=== PATIENT | female | born 1945 | race Caucasian/White ===

== ENCOUNTER 2024-01-15 12:07 | Inpatient (IN) | payer OTHER ==
[~2024-01-15] VITALS: Ht 149.9 cm; Wt 68.5 kg
[2024-01-15 12:07] VITALS: BP_SYST 108; PULSE 78; RESP 17; TEMP 97.2; O2SAT 92
[~2024-01-15 12:07] MED LIST: AMLO-500 PO; AMLO1CAP5; DICY20TA55 PO; FLUO40CA49 PO; GLIP10TA21; GLIP2.5T3 PO; LABE100T25; LEVO125C4 PO; LEVO250T73 PO; LEVO88CA4; LIP20 PO; LIP40; NITR-85 PO; [UNRECOGNIZED DRUG - CODE] PO
[2024-01-15 12:45] LABS: BASOPHILS # (AUTO) 0.1 K/uL (0.0-0.2); BASOPHILS % (AUTO) 0.5 % (0.0-2.0); EOSINOPHILS # (AUTO) 0.1 K/uL (0.0-0.4); EOSINOPHILS % (AUTO) 0.2 % (0.0-4.0); HEMATOCRIT 29.5 % (36-48); HEMOGLOBIN 9.7 g/dL (12.0-16.0); LYMPHOCYTES # (AUTO) 1.5 K/uL (1.0-5.5); LYMPHOCYTES % (AUTO) 7.5 % (20.5-51.5); MEAN CORPUSCULAR HEMOGLOBIN 30 pg (27-31); MEAN CORPUSCULAR HGB CONC 33 % (32-36); MEAN CORPUSCULAR VOLUME 92 fL (79.0-98.0); MONOCYTES # (AUTO) 1.2 K/uL (0.0-1.0); MONOCYTES % (AUTO) 5.7 % (1.7-9.3); NEUTROPHILS # (AUTO) 17.4 K/uL (1.8-7.7); NEUTROPHILS % (AUTO) 86.1 % (40.0-70.0); PLATELET COUNT (AUTO) 432 K/uL (130-430); RED BLOOD CELL COUNT(AUTO) 3.22 MIL/uL (4.2-6.2); RED CELL DISTRIBUTION WIDTH 14.3 % (9.0-15.0); WHITE BLOOD COUNT (AUTO) 20.2 K/uL (4.8-10.8)
[2024-01-15 13:04] LABS: INR 1.1 (0.8-1.2); PROTHROMBIN TIME 11.4 SECS (9.5-12.5)
[2024-01-15 13:14] LABS: ALANINE AMINOTRANSFERASE 8 U/L (12-78); ALBUMIN 2.4 g/dL (3.4-4.8); ANION GAP 10 (5-15); ASPARTATE AMINOTRANSFERASE 16 U/L (10-37); BILIRUBIN,DIRECT 0.1 mg/dL (0.0-0.3); CALCIUM 10.1 mg/dL (8.4-11.0); CARBON DIOXIDE 28 mmol/L (23-29); CHLORIDE 99 mmol/L (98-107); CREATINE KINASE, TOTAL 30 U/L (26-192); CREATININE 0.95 mg/dL (0.55-1.30); FREE T4 (FREE THYROXINE) 2.8 ng/dL (0.6-1.6); GLUCOSE 102 mg/dL (74-106); POTASSIUM 3.8 mmol/L (3.5-5.1); SODIUM SERUM 137 mmol/L (136-145); THYROID STIMULATING HORMONE 1.14 uIu/mL (0.34-4.82); TOTAL BILIRUBIN 0.4 mg/dL (0.0-1.0); TOTAL PROTEIN, SERUM 7.6 g/dL (6.4-8.3); UREA NITROGEN, BLOOD 23 mg/dL (8-21)
[2024-01-15 13:18] LABS: ACETONE, SERUM NEGATIVE (NEGATIVE)
[2024-01-15 13:35] LABS: BILIRUBIN,URINE 1+ (NEGATIVE); BLOOD, URINE 3+ (NEGATIVE); COLOR,URINE YELLOW (YELLOW); GLUCOSE,URINE NEGATIVE (NEGATIVE); KETONES,URINE 1+ (NEGATIVE); LEUKOCYTE ESTERASE ,URINE TRACE (NEGATIVE); NITRITE, URINE NEGATIVE (NEGATIVE); PROTEIN URINE 1+ (NEGATIVE); UROBILINOGEN,URINE 0.2 (0.2-1.0)
[2024-01-15 13:36] LABS: CLARITY/URINE HAZY (CLEAR)
[2024-01-15 14:07] LABS: BACTERIA,URINE RARE /HPF (None Seen)
[2024-01-15 14:08] LABS: HYALINE CASTS, URINE 0-1 /LPF (None Seen)
[2024-01-15] MEDS ORDERED: cefTRIAXone 1 GM VIAL ONE (14:20)
[2024-01-15] MEDS: NACL 0.9% 1,000 ML IV ONE (14:22)
[2024-01-15] MEDS: cefTRIAXone 1 GM in D5W 50 ML IV ONE (14:22)
[2024-01-15 17:40] VITALS: BP_SYST 108; PULSE 74; RESP 16; TEMP 98.9; O2SAT 96
[2024-01-15 20:00] VITALS: BP_SYST 120; PULSE 77; RESP 16; TEMP 97.8; O2SAT 97
[2024-01-15] MEDS: DICYCLOMINE HCL 10 MG CAPSULE PO SCH (21:16)
[2024-01-15] MEDS: ZOLPIDEM TARTRATE 5 MG TABLET PO PRN (21:16)
[2024-01-15] MEDS: LABETALOL HCL 100 MG TABLET PO SCH (21:16)
[2024-01-16] VITALS: BP_SYST 125; PULSE 69; RESP 16; TEMP 98.6; O2SAT 95
[2024-01-16 07:57] VITALS: BP_SYST 113; PULSE 70; RESP 12; TEMP 97.4; O2SAT 95
[2024-01-16] MEDS: glipiZIDE XL 2.5 MG/TAB (GLUCOTROL XL) PO SCH (08:40)
[2024-01-16] MEDS: ATORVASTATIN 20 MG TABLET PO SCH (08:42)
[2024-01-16 10:15] VITALS: O2SAT 95
[2024-01-16 11:10] VITALS: BP_SYST 135; PULSE 86; RESP 16; TEMP 97.9; O2SAT 96
[2024-01-16] MEDS ORDERED: DIATR MEGLU/DIATRIZ SOD 30 ML SOLUTION PO ONE (14:10)
[2024-01-16 15:11] VITALS: BP_SYST 113; PULSE 70; RESP 16; TEMP 98.4; O2SAT 96
[2024-01-16] MEDS: cefTRIAXone 1 GM in D5W 50 ML IV SCH (17:20)
[2024-01-16 20:00] VITALS: BP_SYST 112; PULSE 68; RESP 18; TEMP 98.4; O2SAT 96
[2024-01-17 00:10] VITALS: BP_SYST 108; PULSE 74; RESP 20; TEMP 98.4; O2SAT 96
[2024-01-17 05:45] LABS: EOSINOPHILS # (AUTO) 0.2 K/uL (0.0-0.4); HEMATOCRIT 28.5 % (36-48); HEMOGLOBIN 9.1 g/dL (12.0-16.0); LYMPHOCYTES # (AUTO) 2.5 K/uL (1.0-5.5); MEAN CORPUSCULAR HEMOGLOBIN 30 pg (27-31); MEAN CORPUSCULAR HGB CONC 32 % (32-36); MEAN CORPUSCULAR VOLUME 92 fL (79.0-98.0); MONOCYTES # (AUTO) 1.1 K/uL (0.0-1.0); MONOCYTES % (AUTO) 5.9 % (1.7-9.3); NEUTROPHILS # (AUTO) 14.3 K/uL (1.8-7.7); NEUTROPHILS % (AUTO) 79.1 % (40.0-70.0); PLATELET COUNT (AUTO) 402 K/uL (130-430); RED BLOOD CELL COUNT(AUTO) 3.09 MIL/uL (4.2-6.2); WHITE BLOOD COUNT (AUTO) 18.1 K/uL (4.8-10.8)
[2024-01-17 05:50] LABS: ANION GAP 9 (5-15); CALCIUM 9.8 mg/dL (8.4-11.0); CARBON DIOXIDE 29 mmol/L (23-29); CHLORIDE 98 mmol/L (98-107); CREATININE 0.98 mg/dL (0.55-1.30); GLUCOSE 75 mg/dL (74-106); POTASSIUM 3.7 mmol/L (3.5-5.1); SODIUM SERUM 136 mmol/L (136-145); UREA NITROGEN, BLOOD 21 mg/dL (8-21)
[2024-01-17 08:15] VITALS: BP_SYST 128; PULSE 84; RESP 15; TEMP 98.2; O2SAT 96
[2024-01-17 08:30] VITALS: O2SAT 95
[2024-01-17] MEDS: AZITHROMYCIN 250 MG TABLET PO SCH (10:17)
[2024-01-17 11:14] VITALS: BP_SYST 122; PULSE 78; RESP 15; TEMP 97.1; O2SAT 96
[2024-01-17 15:08] VITALS: BP_SYST 98; PULSE 67; RESP 16; TEMP 97.9; O2SAT 96
[2024-01-17 20:00] VITALS: BP_SYST 115; PULSE 72; RESP 16; TEMP 97.6; O2SAT 98
[2024-01-18 00:30] VITALS: BP_SYST 110; PULSE 70; RESP 16; TEMP 97.7; O2SAT 95
[2024-01-18 07:45] VITALS: BP_SYST 107; PULSE 76; RESP 16; TEMP 97.9; O2SAT 96
[2024-01-18 08:27] LABS: ANION GAP 7 (5-15); BASOPHILS # (AUTO) 0.1 K/uL (0.0-0.2); BASOPHILS % (AUTO) 0.6 % (0.0-2.0); CALCIUM 9.7 mg/dL (8.4-11.0); CARBON DIOXIDE 29 mmol/L (23-29); CHLORIDE 102 mmol/L (98-107); CREATININE 0.96 mg/dL (0.55-1.30); EOSINOPHILS # (AUTO) 0.2 K/uL (0.0-0.4); EOSINOPHILS % (AUTO) 1.7 % (0.0-4.0); GLUCOSE 78 mg/dL (74-106); HEMATOCRIT 27.7 % (36-48); LYMPHOCYTES # (AUTO) 2.2 K/uL (1.0-5.5); LYMPHOCYTES % (AUTO) 18.1 % (20.5-51.5); MEAN CORPUSCULAR HEMOGLOBIN 30 pg (27-31); MEAN CORPUSCULAR HGB CONC 33 % (32-36); MEAN CORPUSCULAR VOLUME 92 fL (79.0-98.0); MONOCYTES # (AUTO) 0.9 K/uL (0.0-1.0); MONOCYTES % (AUTO) 7.3 % (1.7-9.3); NEUTROPHILS # (AUTO) 8.6 K/uL (1.8-7.7); NEUTROPHILS % (AUTO) 72.3 % (40.0-70.0); PLATELET COUNT (AUTO) 400 K/uL (130-430); POTASSIUM 3.3 mmol/L (3.5-5.1); SODIUM SERUM 138 mmol/L (136-145); UREA NITROGEN, BLOOD 16 mg/dL (8-21); WHITE BLOOD COUNT (AUTO) 11.9 K/uL (4.8-10.8)
[2024-01-18 08:38] LABS: ERYTHROCYTE SEDIMENTATION RATE 77 MM/HR (0-20)
[2024-01-18 08:45] VITALS: O2SAT 96
[2024-01-18 11:05] VITALS: BP_SYST 97; PULSE 75; RESP 15; TEMP 97.8; O2SAT 96
[2024-01-18 15:40] VITALS: BP_SYST 100; PULSE 76; RESP 15; TEMP 97.7; O2SAT 96
[2024-01-18 20:00] VITALS: BP_SYST 111; PULSE 83; RESP 16; TEMP 97.5; O2SAT 95
[2024-01-19 00:03] VITALS: BP_SYST 110; PULSE 69; RESP 16; TEMP 97.2; O2SAT 96
[2024-01-19 06:20] LABS: BASOPHILS # (AUTO) 0.1 K/uL (0.0-0.2); BASOPHILS % (AUTO) 0.5 % (0.0-2.0); EOSINOPHILS # (AUTO) 0.3 K/uL (0.0-0.4); EOSINOPHILS % (AUTO) 2.1 % (0.0-4.0); HEMOGLOBIN 9.7 g/dL (12.0-16.0); LYMPHOCYTES # (AUTO) 2.4 K/uL (1.0-5.5); LYMPHOCYTES % (AUTO) 19.4 % (20.5-51.5); MEAN CORPUSCULAR HEMOGLOBIN 30 pg (27-31); MEAN CORPUSCULAR HGB CONC 32 % (32-36); MEAN CORPUSCULAR VOLUME 92 fL (79.0-98.0); MONOCYTES # (AUTO) 0.9 K/uL (0.0-1.0); MONOCYTES % (AUTO) 6.9 % (1.7-9.3); NEUTROPHILS # (AUTO) 8.9 K/uL (1.8-7.7); NEUTROPHILS % (AUTO) 71.1 % (40.0-70.0); PLATELET COUNT (AUTO) 413 K/uL (130-430); RED BLOOD CELL COUNT(AUTO) 3.27 MIL/uL (4.2-6.2); RED CELL DISTRIBUTION WIDTH 13.9 % (9.0-15.0); WHITE BLOOD COUNT (AUTO) 12.6 K/uL (4.8-10.8)
[2024-01-19 06:39] LABS: ERYTHROCYTE SEDIMENTATION RATE 67 MM/HR (0-20)
[2024-01-19 06:54] LABS: ALANINE AMINOTRANSFERASE 15 U/L (12-78); ALBUMIN 2.5 g/dL (3.4-4.8); ANION GAP 7 (5-15); ASPARTATE AMINOTRANSFERASE 22 U/L (10-37); CALCIUM 9.7 mg/dL (8.4-11.0); CARBON DIOXIDE 30 mmol/L (23-29); CHLORIDE 102 mmol/L (98-107); CREATININE 0.95 mg/dL (0.55-1.30); GLUCOSE 82 mg/dL (74-106); POTASSIUM 3.3 mmol/L (3.5-5.1); SODIUM SERUM 139 mmol/L (136-145); TOTAL BILIRUBIN 0.2 mg/dL (0.0-1.0); UREA NITROGEN, BLOOD 15 mg/dL (8-21)
[2024-01-19 08:27] VITALS: BP_SYST 111; PULSE 80; RESP 17; TEMP 97.8; O2SAT 96
[2024-01-19 09:00] VITALS: O2SAT 95
[2024-01-19 11:09] VITALS: BP_SYST 119; PULSE 75; RESP 15; TEMP 97.9; O2SAT 95
[2024-01-19 16:15] VITALS: BP_SYST 118; PULSE 75; RESP 15; TEMP 97.8; O2SAT 95
[2024-01-19 20:00] VITALS: BP_SYST 120; PULSE 68; RESP 16; TEMP 97.7; O2SAT 97
[2024-01-20 00:05] VITALS: BP_SYST 115; PULSE 64; RESP 16; TEMP 97.3; O2SAT 96
[2024-01-20 06:22] LABS: BASOPHILS # (AUTO) 0.1 K/uL (0.0-0.2); BASOPHILS % (AUTO) 0.7 % (0.0-2.0); EOSINOPHILS # (AUTO) 0.4 K/uL (0.0-0.4); EOSINOPHILS % (AUTO) 3.2 % (0.0-4.0); HEMATOCRIT 27.9 % (36-48); HEMOGLOBIN 9.2 g/dL (12.0-16.0); LYMPHOCYTES # (AUTO) 2.8 K/uL (1.0-5.5); LYMPHOCYTES % (AUTO) 23.2 % (20.5-51.5); MEAN CORPUSCULAR HEMOGLOBIN 30 pg (27-31); MEAN CORPUSCULAR HGB CONC 33 % (32-36); MEAN CORPUSCULAR VOLUME 92 fL (79.0-98.0); MONOCYTES # (AUTO) 0.9 K/uL (0.0-1.0); MONOCYTES % (AUTO) 7.7 % (1.7-9.3); NEUTROPHILS # (AUTO) 7.9 K/uL (1.8-7.7); NEUTROPHILS % (AUTO) 65.2 % (40.0-70.0); PLATELET COUNT (AUTO) 384 K/uL (130-430); RED BLOOD CELL COUNT(AUTO) 3.04 MIL/uL (4.2-6.2); RED CELL DISTRIBUTION WIDTH 13.9 % (9.0-15.0)
[2024-01-20 07:00] LABS: ALANINE AMINOTRANSFERASE 13 U/L (12-78); ALBUMIN 2.5 g/dL (3.4-4.8); ANION GAP 8 (5-15); ASPARTATE AMINOTRANSFERASE 20 U/L (10-37); CALCIUM 9.7 mg/dL (8.4-11.0); CARBON DIOXIDE 30 mmol/L (23-29); CHLORIDE 102 mmol/L (98-107); CREATININE 1.05 mg/dL (0.55-1.30); GLUCOSE 81 mg/dL (74-106); POTASSIUM 3.3 mmol/L (3.5-5.1); SODIUM SERUM 140 mmol/L (136-145); TOTAL BILIRUBIN 0.2 mg/dL (0.0-1.0); TOTAL PROTEIN, SERUM 6.9 g/dL (6.4-8.3); UREA NITROGEN, BLOOD 13 mg/dL (8-21)
[2024-01-20 08:00] VITALS: O2SAT 97
[2024-01-20] MEDS ORDERED: AMLO1CAP6 PO (08:11)
[2024-01-20 08:15] VITALS: BP_SYST 139; PULSE 65; RESP 16; TEMP 97.7; O2SAT 96
[2024-01-20 11:10] VITALS: BP_SYST 115; PULSE 65; RESP 15; TEMP 97.6; O2SAT 94
[2024-01-20] MEDS: POTASSIUM CHLORIDE 20 MEQ/PKT PACKET PO ONE (12:58)
[2024-01-20 16:03] VITALS: BP_SYST 112; PULSE 66; RESP 15; TEMP 97.9; O2SAT 95
[2024-01-20 20:00] VITALS: BP_SYST 117; PULSE 68; RESP 18; TEMP 98.5; O2SAT 96
[2024-01-20] MEDS: MIRTAZAPINE 15 MG TABLET PO SCH (22:40)
[2024-01-21 00:45] VITALS: BP_SYST 132; PULSE 68; RESP 17; TEMP 97.8; O2SAT 95
[2024-01-21 08:00] VITALS: O2SAT 96
[2024-01-21 08:06] VITALS: BP_SYST 118; PULSE 67; RESP 16; TEMP 97.2; O2SAT 96
[2024-01-21 11:08] VITALS: BP_SYST 109; PULSE 64; RESP 16; TEMP 97.4; O2SAT 98
[2024-01-21 11:38] LABS: BASOPHILS # (AUTO) 0.1 K/uL (0.0-0.2); BASOPHILS % (AUTO) 0.8 % (0.0-2.0); EOSINOPHILS # (AUTO) 0.4 K/uL (0.0-0.4); EOSINOPHILS % (AUTO) 3.8 % (0.0-4.0); HEMOGLOBIN 9.7 g/dL (12.0-16.0); LYMPHOCYTES # (AUTO) 2.7 K/uL (1.0-5.5); LYMPHOCYTES % (AUTO) 23.9 % (20.5-51.5); MEAN CORPUSCULAR HEMOGLOBIN 30 pg (27-31); MEAN CORPUSCULAR HGB CONC 32 % (32-36); MEAN CORPUSCULAR VOLUME 92 fL (79.0-98.0); MONOCYTES % (AUTO) 8.9 % (1.7-9.3); NEUTROPHILS % (AUTO) 62.6 % (40.0-70.0); PLATELET COUNT (AUTO) 402 K/uL (130-430); RED BLOOD CELL COUNT(AUTO) 3.24 MIL/uL (4.2-6.2); RED CELL DISTRIBUTION WIDTH 14.1 % (9.0-15.0); WHITE BLOOD COUNT (AUTO) 11.2 K/uL (4.8-10.8)
[2024-01-21 12:03] LABS: ALANINE AMINOTRANSFERASE 15 U/L (12-78); ALBUMIN 2.5 g/dL (3.4-4.8); ANION GAP 5 (5-15); ASPARTATE AMINOTRANSFERASE 21 U/L (10-37); CALCIUM 9.8 mg/dL (8.4-11.0); CARBON DIOXIDE 32 mmol/L (23-29); CHLORIDE 104 mmol/L (98-107); CREATININE 1.04 mg/dL (0.55-1.30); GLUCOSE 92 mg/dL (74-106); POTASSIUM 4.5 mmol/L (3.5-5.1); SODIUM SERUM 141 mmol/L (136-145); TOTAL BILIRUBIN 0.2 mg/dL (0.0-1.0); TOTAL PROTEIN, SERUM 6.8 g/dL (6.4-8.3); UREA NITROGEN, BLOOD 12 mg/dL (8-21)
[2024-01-21 15:14] VITALS: BP_SYST 109; PULSE 64; RESP 16; TEMP 97.4; O2SAT 98
[2024-01-21] MEDS ORDERED: LEVO250T73 PO (15:31)
[2024-01-21 16:55] VITALS: BP_SYST 125; PULSE 66; RESP 16; TEMP 97.8; O2SAT 96
[2024-01-22] MEDS ORDERED: levoFLOXacin 250 MG TABLET PO SCH (10:00)
== END 2024-01-21 17:35 | DRG 872 ==
LOC: SED 12:07 → STU 16:15 → SMU 16:43
PROVIDERS: ADMIT Specialist; ATTEND Specialist
DX: A41.9 Sepsis, unspecified organism (principal); N13.6 Pyonephrosis; E86.0 Dehydration; I10 Essential (primary) hypertension; E03.9 Hypothyroidism, unspecified; E78.5 Hyperlipidemia, unspecified; E66.9 Obesity, unspecified; E11.9 Type 2 diabetes mellitus without complications; D64.9 Anemia, unspecified; E87.6 Hypokalemia; Z68.30 Body mass index [BMI] 30.0-30.9, adult; Z79.899 Other long term (current) drug therapy
CPT/HCPCS: 36415; 71045; 80048; 80053; 80076; 81000; 81001; 81015; 82009; 82550; 83605; 84439; 84443; 84484; 85025; 85610; 85651; 85730; 87040; 87081; 87086; 87230; 93005; 96365; 97110-GP; 97530-GP; 99285; J0696; J7060; Q0144; Q9964